=== PATIENT | female | born 1950 | race Caucasian/White ===

== ENCOUNTER 2016-03-05 14:00 | Emergency (ER) | payer OTHER ==
[~2016-03-05 14:00] MED LIST: ASPIR LOW81 MG PO; AZO MENOPAUSE1 X; ESCITALOPRAM10 MG PO; EVISTA 60MG60 MG/TAB PO; KEPPRA500 MG PO; VIMOVO 20 MG-501 TCP PO
[2016-03-05] MEDS ORDERED: ACTONEL (14:04)
== END 2016-03-05 16:40 | disposition home or self-care (01) ==
LOC: ED 14:00
DX: K59.00 Constipation, unspecified (principal)

== ENCOUNTER 2023-09-05 12:46 | Emergency (ER) | payer MEDICARE, OTHER ==
[~2023-09-05] VITALS: Ht 160 cm; Wt 65.9 kg
[~2023-09-05 12:46] MED LIST changes: +ACTONEL; +KEPPRA 500MG500 MG PO; -KEPPRA500 MG PO; +PANTOPRAZOLE SO40 MG PO; +PRAVASTATIN SOD10 MG PO
[2023-09-05 13:15] LABS: BASO # 0.01 K/mm3 (0.02-0.10); EOS # 0.09 K/mm3 (0.04-0.40); EOS % 1.8 % (1.0-5.0); HEMATOCRIT 39.7 % (37.0-47.0); HEMOGLOBIN 13.6 g/dL (12.5-16.0); LYMPH# 1.69 K/mm3 (1.50-4.00); MEAN CELL VOLUME 90 fl (78-100); MEAN CORPUSCULAR HEMOGLOBIN 31 pg (27-31); MEAN CORPUSCULAR HGB CONC 34 g/dL (33-37); MEAN PLATELET VOLUME 9.2 fl (7.4-10.4); MONO # 0.43 K/mm3 (0.20-0.80); NEU # 2.85 K/mm3 (1.40-6.50); PLATELET COUNT 184 K/mm3 (130-400); RED BLOOD COUNT 4.42 M/mm3 (4.10-5.30); RED CELL DISTRIBUTION WIDTH 11.9 % (11.5-14.5); WHITE BLOOD COUNT 5.1 K/mm3 (4.8-10.8)
[2023-09-05 13:22] LABS: ALBUMIN 4.3 g/dL (3.4-4.8)
[2023-09-05 13:24] LABS: CALCIUM 9.9 mg/dL (8.3-10.5)
[2023-09-05 13:25] LABS: TOTAL PROTEIN 6.9 g/dL (6.2-8.1)
[2023-09-05 13:27] LABS: TOTAL BILIRUBIN 0.5 mg/dL (0.2-1.2)
[2023-09-05] MEDS ORDERED: NS 500 ML IV SCH (13:45)
[2023-09-05 14:02] LABS: URINE WBC 0 /hpf (0-3)
[2023-09-05 14:17] LABS: PH-URINE 5.5 (5.0 - 8.0); URINE APPEARANCE CLEAR (CLEAR); URINE BILIRUBIN NEGATIVE (NEGATIVE); URINE BLOOD NEGATIVE (NEGATIVE); URINE COLOR LIGHT YELLOW (YELLOW); URINE GLUCOSE NEGATIVE (NEGATIVE); URINE KETONE NEGATIVE (NEGATIVE); URINE LEUKOCYTE ESTERASE NEGATIVE (NEGATIVE); URINE NITRATE NEGATIVE (NEGATIVE); URINE PROTEIN(semi-quant) NEGATIVE (NEGATIVE)
[2023-09-05 14:44] VITALS: BP 112/82
== END 2023-09-05 14:45 | disposition home or self-care (01) ==
LOC: ED 12:46
PROVIDERS: Family Medicine
DX: I10 Essential (primary) hypertension (principal); R00.1 Bradycardia, unspecified
CPT/HCPCS: J7040